=== PATIENT | female | born 1960 | race Caucasian/White ===

== ENCOUNTER 2022-01-16 07:35 | Emergency (ER) | payer BC ==
[2022-01-16 07:52] VITALS: TEMP 98.2
--- NOTE | 2022-01-16 08:31 | ED ---
General Adult HPI - General Chief complaint: GI Bleed Stated complaint: Stomach pain,Rectal bleeding,fever Time Seen by Provider: 01/16/22 07:56 Source: patient, family Mode of arrival: wheelchair Limitations: no limitations - History of Present Illness Initial comments: Dictation was produced using [employer] dictation software. please excuse any gram matical, word or spelling errors. Chief Complaint: 61-year-old female presents emergency department for pelvic cramping and GI bleed History of Present Illness: 61-year-old female as a 69-year-old she was diagnosed with colon cancer and had a bowel resection followed by several weeks of chemotherapy. She's been a symptomatic that standpoint since then. She has been getting frequent checks with no recurrence. Last night and this morning patient had multiple bouts of pelvic cramping and bright red blood per rectum. Patient has history of polyps. She states that the pain is in her suprapubic area. Following the cramping she has bouts of bloody bowel movement. Patient has inadequate evaluation medications. Around these times of the cramping she has associated chills and fevers. The ROS documented in this emergency department record has been reviewed and confirmed by me. Those systems with pertinent positive or negative responses have been documented in the HPI. All other systems are other negative and/or noncontributory. PHYSICAL EXAM: General Impression: Alert and oriented x3, not in acute distress HEENT: Normocephalic atraumatic, extra-ocular movements intact, pupils equal and reactive to light bilaterally, mucous membranes moist. Cardiovascular: Heart regular rate and rhythm Chest: Able to complete full sentences, no retractions, no tachypnea Abdomen: abdomen soft, mild palpatory tenderness in the suprapubic area, non- distended, no organomegaly Musculoskeletal: Pulses present and equal in all extremities, no peripheral edema Motor: no focal deficits noted Neurological: CN II-XII grossly intact, no focal motor or sensory deficits noted Skin: Intact with no visualized rashes Psych: Normal affect and mood Rectal: No gross blood on digital rectal exam ED course: 61-year-old female presents to the emergency department for acute onset pelvic pain and bright red blood per rectum. Vital signs upon arrival are within acceptable limits. Patient given 40 mg of IV Protonix Laboratory evaluation obtained. CBC, coag panel is unremarkable. Metabolic panel is within acceptable limits. Patient has normal blood markers. Hemoglobin is 13.2. Computed tomography scan abdomen and pelvis shows postsurgical changes involving the colon. No other significant abnormality seen. Patient observed in emergency department for 2 hours. She is reevaluated bedside at 9:45 AM found to be in stable medical condition. While in the emergency department she has not had any other bloody bowel movements. Disposition options discussed with patient and . Patient and live in [place] with her in town visiting family for baby shower. Patient is motivated to be discharge. She preferred to be discharged with strict return precautions. She will prefer to follow-up with her doctors in [place]. Patient and are reasonable. They do not have any issues return to the emergency department patient's symptoms get worse. - Related Data Allergies Allergy/AdvReac Type Severity Reaction Status Date / Time Sulfa (Sulfonamide Allergy Rash/Hives Verified 01/16/22 07:52 Antibiotics) Review of Systems ROS Statement: Those systems with pertinent positive or pertinent negative responses have been documented in the HPI. ROS Other: All systems not noted in ROS Statement are negative. Past Medical History Past Medical History: Osteoarthritis (OA), Thyroid Disorder Additional Past Medical History / Comment(s): colon ca at 16 y/o, high A1C Past Surgical History: Orthopedic Surgery Additional Past Surgical History / Comment(s): thyroidectomy, colon resection Smoking Status: Never smoker Past Alcohol Use History: Occasional Past Drug Use History: None Reported General Exam Limitations: no limitations Course Vital Signs 01/16/22 07:46 Temperature 98.2 F Pulse Rate 85 Respiratory 18 Rate Blood Pressure 125/74 O2 Sat by Pulse 97 Oximetry Medical Decision Making - Lab Data Result diagrams: 01/16/22 08:30 01/16/22 08:30 Lab Results 01/16/22 01/16/22 01/16/22 Range/Units 08:30 08:30 08:30 WBC 9.6 (3.8-10.6) k/uL RBC 4.40 (3.80-5.40) m/uL Hgb 13.2 (11.4-16.0) gm/dL Hct 40.4 (34.0-46.0) % MCV 91.9 (80.0-100.0) fL MCH 30.0 (25.0-35.0) pg MCHC 32.7 (31.0-37.0) g/dL RDW 13.6 (11.5-15.5) % Plt Count 293 (150-450) k/uL MPV 7.6 Neutrophils % 85 % Lymphocytes % 12 % Monocytes % 2 % Eosinophils % 0 % Basophils % 1 % Neutrophils # 8.1 H (1.3-7.7) k/uL Lymphocytes # 1.1 (1.0-4.8) k/uL Monocytes # 0.2 (0-1.0) k/uL Eosinophils # 0.0 (0-0.7) k/uL Basophils # 0.1 (0-0.2) k/uL PT 10.5 (9.0-12.0) sec INR 1.0 (<1.2) APTT 23.3 (22.0-30.0) sec Sodium 139 (137-145) mmol/L Potassium 4.5 (3.5-5.1) mmol/L Chloride 104 (98-107) mmol/L Carbon Dioxide 23 (22-30) mmol/L Anion Gap 12 mmol/L BUN 24 H (7-17) mg/dL Creatinine 0.93 (0.52-1.04) mg/dL Est GFR (CKD-EPI)AfAm 77 (>60 ml/min/1.73 sqM) Est GFR (CKD-EPI)NonAf 67 (>60 ml/min/1.73 sqM) Glucose 237 H (74-99) mg/dL Calcium 9.2 (8.4-10.2) mg/dL Blood Type Recheck Bld Type Recheck Status Spec Expiration Date 01/16/22 Range/Units 08:31 WBC (3.8-10.6) k/uL RBC (3.80-5.40) m/uL Hgb (11.4-16.0) gm/dL Hct (34.0-46.0) % MCV (80.0-100.0) fL MCH (25.0-35.0) pg MCHC (31.0-37.0) g/dL RDW (11.5-15.5) % Plt Count (150-450) k/uL MPV Neutrophils % % Lymphocytes % % Monocytes % % Eosinophils % % Basophils % % Neutrophils # (1.3-7.7) k/uL Lymphocytes # (1.0-4.8) k/uL Monocytes # (0-1.0) k/uL Eosinophils # (0-0.7) k/uL Basophils # (0-0.2) k/uL PT (9.0-12.0) sec INR (<1.2) APTT (22.0-30.0) sec Sodium (137-145) mmol/L Potassium (3.5-5.1) mmol/L Chloride (98-107) mmol/L Carbon Dioxide (22-30) mmol/L Anion Gap mmol/L BUN (7-17) mg/dL Creatinine (0.52-1.04) mg/dL Est GFR (CKD-EPI)AfAm (>60 ml/min/1.73 sqM) Est GFR (CKD-EPI)NonAf (>60 ml/min/1.73 sqM) Glucose (74-99) mg/dL Calcium (8.4-10.2) mg/dL Blood Type Recheck No Previous Record Bld Type Recheck Status CABO Indicated Spec Expiration Date 01/19/20222330 Disposition Clinical Impression: Pelvic pain, BRBPR (bright red blood per rectum) Disposition: HOME SELF-CARE Condition: Fair Instructions (If sedation given, give patient instructions): Gastrointestinal Bleeding (ED) Is patient prescribed a controlled substance at d/c from ED?: No Referrals: Nonstaff,Physician [Primary Care Provider] - 1-2 days Time of Disposition: 09:37
[2022-01-16 08:42] LABS: Basophils # (A) 0.1 k/uL (0-0.2); Basophils % (A) 1 %; Eosinophils % (A) 0 %; HCT 40.4 % (34.0-46.0); HGB 13.2 gm/dL (11.4-16.0); Lymphocytes # (A) 1.1 k/uL (1.0-4.8); Lymphocytes % (A) 12 %; MCHC 32.7 g/dL (31.0-37.0); MCV 91.9 fL (80.0-100.0); Mean Platelet Volume 7.6; Monocytes # (A) 0.2 k/uL (0-1.0); Monocytes % (A) 2 %; Neutrophils # (A) 8.1 k/uL (1.3-7.7); Neutrophils % (A) 85 %; Platelet Count 293 k/uL (150-450); RDW 13.6 % (11.5-15.5); WBC 9.6 k/uL (3.8-10.6)
[2022-01-16] MEDS ORDERED: PANTOPRAZOLE 40 MG/10 ML VIAL IVP STA (08:42)
[2022-01-16 08:51] LABS: Calcium 9.2 mg/dL (8.4-10.2); Potassium 4.5 mmol/L (3.5-5.1)
[2022-01-16 08:53] LABS: Partial Thromboplastin Time 23.3 sec (22.0-30.0); Prothrombin Time 10.5 sec (9.0-12.0)
--- NOTE | 2022-01-16 09:13 | CT ---
EXAMINATION TYPE: CT abdomen pelvis w con DATE OF EXAM: 01/16/2022 COMPARISON: None HISTORY: cramping, rectal bleeding, history of colon CA with resection CT DLP: 1098.8 mGycm Automated exposure control for dose reduction was used. TECHNIQUE: Helical acquisition of images was performed from the lung bases through the pelvis. CONTRAST: Performed without Oral Contrast and with IV Contrast, patient injected with 100 mL of Isovue 300. FINDINGS: The lung bases are clear. There are postsurgical changes of partial colectomy. There is no bowel obstruction or inflammation. T here is no free intraperitoneal air or fluid. The gallbladder is normal and there is no biliary ductal dilatation. Liver, pancreas and spleen as we ll as the adrenal glands are normal without focal mass or organomegaly. The kidneys excrete contrast promptly and symmetrically and there is no solid renal mass or hydroneph rosis. There is no retroperitoneal adenopathy or hemorrhage in the caliber of the abdominal aorta is normal. There are no focal intraosseous abnormalities. There are moderate to marked degenerative changes left hip and there is a right hip prosthesis. IMPRESSION: Postsurgical changes involving the colon. No other significant abnormality seen.
[2022-01-16] MEDS ORDERED: ACET/COD 300 MG/30 MG STARTER PACK 6 TAB BTL PO STA (09:37)
[2022-01-16 09:52] VITALS: BP 128/74; PULSE 78; RESP 16
== END 2022-01-16 09:51 | disposition home or self-care (01) ==
LOC: EC 07:35
DX: K62.5 Hemorrhage of anus and rectum (principal)
CPT/HCPCS: 36415; 86900; 86901; 80048; 85025; 85610; 85730; 86850; 74177; 99285; 96374; C9113; Q9967